=== PATIENT | female | born 1995 | race Two or more races ===

== ENCOUNTER 2018-03-10 19:17 | Outpatient (CLI) | payer MEDICAID ==
[2018-03-10 20:27] LABS: ADD UMIC NO; UR ASCORBIC ACID NEGATIVE (NEGATIVE); UR BILIRUBIN (Dip) NEGATIVE (NEGATIVE); UR BLOOD (Dip) NEGATIVE (NEGATIVE); UR CLARITY SLIGHTLY CLOUDY (CLEAR); UR COLOR STRAW (YELLOW); UR GLUCOSE (Dip) NEGATIVE (NEGATIVE); UR KETONES (Dip) NEGATIVE (NEGATIVE); UR LEUKOCYTE ESTERASE (Dip) NEGATIVE Leu/ul (NEGATIVE); UR NITRITE (Dip) NEGATIVE (NEGATIVE); UR RBC 0 /HPF (0-5); UR SPECIFIC GRAVITY (Dip) 1.002 (1.003-1.030); UR SQUAMOUS EPITHELIAL CELL FEW /HPF (FEW); UR TOTAL PROTEIN (Dip) NEGATIVE (NEGATIVE); UR UROBILINOGEN (Dip) NEGATIVE (NEGATIVE); UR WBC 0 /HPF (0-5)
== END 2018-03-10 21:03 | disposition home or self-care (01) ==
LOC: OBT 19:17 → L-D 19:22 → OBT 21:03
DX: O62.9 Abnormality of forces of labor, unspecified (principal); Z3A.36 36 weeks gestation of pregnancy
CPT/HCPCS: 81001; 81003

== ENCOUNTER 2018-03-25 17:15 | Outpatient (CLI) | payer MEDICAID | END 2018-03-25 18:30 | disposition home or self-care (01) | LOC: OBT 17:15 → L-D 17:16 → OBT 18:30 | DX: O62.9 Abnormality of forces of labor, unspecified (principal); Z3A.39 39 weeks gestation of pregnancy ==

== ENCOUNTER 2018-03-26 00:13 | Inpatient (IN) | payer MEDICAID ==
[2018-03-26] MEDS ORDERED: LIDOCAINE 1% (MPF) 30 ML INJ INJ (01:30)
[2018-03-26] MEDS ORDERED: IBUPROFEN 600 MG TAB PO (01:30)
[2018-03-26] MEDS ORDERED: OXYTOCIN 30 UNITS/LR 500 ML IV ×2 (01:30→11:30)
[2018-03-26] MEDS ORDERED: MISOPROSTOL 200 MCG TAB PR (01:30)
[2018-03-26] MEDS ORDERED: METHYLERGONOVINE 0.2 MG INJ IM (01:30)
[2018-03-26] MEDS ORDERED: CARBOPROST 250 MCG INJ IM (01:30)
[2018-03-26] MEDS: LACTATED RINGER'S 1,000 ML IV ×5 (02:15→18:27)
[2018-03-26] MEDS: AMPICILLIN 2 GM/NS (PMX) 100 ML IV (02:19)
[2018-03-26] MEDS: BUTORPHANOL 2 MG INJ IV ×2 (02:53→05:38)
[2018-03-26 03:13] LABS: ADD MAN DIFF? NO
[2018-03-26 03:14] LABS: WHITE BLOOD COUNT 14.1 10^3/ul (4.8-10.8)
[2018-03-26 03:14] LABS: BASOPHILS % 0.2 % (0.0-2.0); EOSINOPHILS % 0.3 % (0.0-7.0); HEMATOCRIT 36.6 % (37.0-47.0); HEMOGLOBIN 12.6 g/dl (12.0-16.0); LYMPHOCYTES # 3.1 10^3/ul (0.8-2.9); LYMPHOCYTES % 21.8 % (18.0-55.0); MEAN CORPUSCULAR HEMOGLOBIN 30.3 pg (29.0-33.0); MEAN CORPUSCULAR HGB CONC 34.4 g/dl (32.0-37.0); MEAN PLATELET VOLUME 12.2 fl (7.4-10.4); MONOCYTE # 0.8 10^3/ul (0.3-0.9); NEUTROPHIL # 10.1 10^3/ul (1.6-7.5); NEUTROPHILS % 71.3 % (30.0-74.0); PLATELET COUNT 214 10^3/UL (140-415); RED BLOOD COUNT 4.16 10^6/ul (4.20-5.40); RED CELL DISTRIBUTION WIDTH 13.6 % (11.5-14.5)
[2018-03-26 03:38] LABS: INR 0.89; PARTIAL THROMBOPLASTIN TIME 26.4 Sec (23.0-35.0); PROTIME 12.1 Sec (11.9-14.9); PT RATIO 0.9
[2018-03-26 04:09] LABS: HEPATITIS B SURFACE ANTIGEN NEGATIVE (NEGATIVE)
[2018-03-26 04:19] LABS: HIV 1&2 ANTIBODY NEGATIVE (NEGATIVE)
[2018-03-26] MEDS: AMPICILLIN 1 GM/NS (PMX) 50 ML IV ×5 (05:42→22:52)
[2018-03-26] MEDS ORDERED: DIPHENHYDRAMINE 50 MG INJ IV (09:30)
[2018-03-26] MEDS ORDERED: NALOXONE (0.4 MG/ML) INJ IV (09:30)
[2018-03-26] MEDS: OXYTOCIN 30 UNITS/LR 500 ML IV (11:25)
[2018-03-26 15:18] LABS: RAPID PLASMA REAGIN NONREACTIVE (NR)
[2018-03-26] MEDS: FENTAnyl 2MCG/ML-ROPIV 0.2% 100 ML BAG EPI ×2 (16:52→22:45)
[2018-03-26] MEDS: ONDANSETRON 4 MG INJ IV (22:53)
[2018-03-27] MEDS: AMPICILLIN 1 GM/NS (PMX) 50 ML IV ×2 (02:54→07:09)
[2018-03-27] MEDS: LACTATED RINGER'S 1,000 ML IV ×2 (02:55→09:04)
[2018-03-27] MEDS: FENTAnyl 2MCG/ML-ROPIV 0.2% 100 ML BAG EPI (04:17)
[2018-03-27] MEDS ORDERED: LIDOCAINE 1% (MPF) 30 ML INJ (07:47)
[2018-03-27] MEDS ORDERED: OXYTOCIN 30 UNITS/LR 500 ML IV ×2 (08:12→08:30)
[2018-03-27] MEDS: OXYTOCIN 30 UNITS/LR 500 ML IV ×2 (08:17→12:04)
[2018-03-27] MEDS ORDERED: NACL 0.9% 3 ML SYG IV (08:30)
[2018-03-27] MEDS ORDERED: METHYLERGONOVINE 0.2 MG INJ IM (08:30)
[2018-03-27] MEDS ORDERED: MISOPROSTOL 200 MCG TAB PR (08:30)
[2018-03-27] MEDS ORDERED: CARBOPROST 250 MCG INJ IM (08:30)
[2018-03-27] MEDS ORDERED: ONDANSETRON 4 MG INJ IV (08:30)
[2018-03-27] MEDS ORDERED: OXYCODONE/ASPIRIN (4.88/325) TAB PO ×2 (08:30)
[2018-03-27] MEDS ORDERED: DIBUCAINE 1% 30 GM OINT TOP (08:30)
[2018-03-27] MEDS: SENNA/DOCUSATE NA (8.6MG/50MG) TAB PO ×2 (09:30→20:29)
[2018-03-27] MEDS: LANOLIN 7 GM TUBE TOP (10:38)
[2018-03-27] MEDS: WITCH HAZEL/GLYCERIN PAD PR (10:38)
[2018-03-27] MEDS: BENZOCAINE 20% 56 ML SPRAY TOP (10:38)
[2018-03-27] MEDS: IBUPROFEN 600 MG TAB PO ×3 (11:51→23:47)
[2018-03-28] MEDS: IBUPROFEN 600 MG TAB PO ×3 (05:59→17:25)
[2018-03-28 08:05] LABS: ADD MAN DIFF? NO
[2018-03-28 08:11] LABS: WHITE BLOOD COUNT 15.2 10^3/ul (4.8-10.8)
[2018-03-28 08:11] LABS: BASOPHIL # 0.1 10^3/ul (0.0-0.1); BASOPHILS % 0.3 % (0.0-2.0); EOSINOPHILS # 0.1 10^3/ul (0.0-0.5); EOSINOPHILS % 0.4 % (0.0-7.0); HEMATOCRIT 27.5 % (37.0-47.0); HEMOGLOBIN 9.5 g/dl (12.0-16.0); LYMPHOCYTES # 2.5 10^3/ul (0.8-2.9); LYMPHOCYTES % 16.5 % (18.0-55.0); MEAN CORPUSCULAR HEMOGLOBIN 30.6 pg (29.0-33.0); MEAN CORPUSCULAR HGB CONC 34.5 g/dl (32.0-37.0); MEAN CORPUSCULAR VOLUME 88.7 fl (72.0-104.0); MEAN PLATELET VOLUME 11.7 fl (7.4-10.4); MONOCYTES % 6.3 % (0.0-13.0); NEUTROPHIL # 11.6 10^3/ul (1.6-7.5); PLATELET COUNT 173 10^3/UL (140-415)
[2018-03-28] MEDS: SENNA/DOCUSATE NA (8.6MG/50MG) TAB PO ×2 (08:54→21:14)
[2018-03-28 10:46] LABS: RUBELLA ANTIBODY - IGM <20.00 AU/mL
[2018-03-28 11:33] LABS: RUBELLA ANTIBODY - IGG 2.97 index
[2018-03-28] MEDS: FERROUS SULFATE (EC) 325 MG TAB PO (21:14)
[2018-03-29] MEDS: IBUPROFEN 600 MG TAB PO ×3 (06:09→12:19)
[2018-03-29 08:05] LABS: WHITE BLOOD COUNT 12.8 10^3/ul (4.8-10.8)
[2018-03-29] MEDS: FERROUS SULFATE (EC) 325 MG TAB PO (08:48)
[2018-03-29] MEDS: SENNA/DOCUSATE NA (8.6MG/50MG) TAB PO (08:48)
== END 2018-03-29 16:20 | disposition home or self-care (01) | DRG 807 ==
LOC: OBT 00:13 → PP1 03-27 09:10 → L-D 00:15 → OBT 00:50 → L-D 00:50
PROVIDERS: Obstetrics & Gynecology
PROC: 10E0XZZ Delivery of Products of Conception, External Approach (ICD-10-PCS; principal; 2018-03-26)
PROC: 0HQ9XZZ Repair Perineum Skin, External Approach (ICD-10-PCS; 2018-03-26)
PROC: 3E033VJ Introduction of Other Hormone into Peripheral Vein, Percutaneous Approach (ICD-10-PCS; 2018-03-26)
DX: O69.81X0 Labor and delivery complicated by cord around neck, without compression, not applicable or unspecified (principal); Z37.0 Single live birth; O71.89 Other specified obstetric trauma; Z3A.39 39 weeks gestation of pregnancy
CPT/HCPCS: 62319; 76816; 85025; 85048; 85610; 85730; 86592; 86703; 86762; 86850; 86900; 86901; 87340